=== PATIENT | female | born 1995 | race Caucasian/White ===

== ENCOUNTER 2018-02-13 10:39 | Emergency (ER) | payer MEDICAID, OTHER ==
[2018-02-13 11:02] VITALS: BP 135/84
--- NOTE | 2018-02-13 11:11 | UC ---
Skin Complaint HPI - HPI Summary HPI Summary: 22-year-old female presents with abdominal discomfort and pain. She has had section 9 days ago and states over the last couple of days had increased pain. There hasn been purulent drainage and odorous smell coming from the incision site she has attempted to keep it clean but is having worsening pain and noticing tenderness and redness spreading along the lower abdomen. She denies any fevers or chills. She denies any nausea or vomiting. She does denies any abnormal vaginal bleeding or clotting. She denies shortness of breath chest pains or palpitations. - History of Current Complaint Chief Complaint: UCGeneralIllness Time Seen by Provider: 02/13/18 11:04 Stated Complaint: SKIN COMPLAINT Hx Obtained From: Patient, Family/Environmental Protection Geologist Hx Last Menstrual Period: post delivery Onset/Duration: Gradual Onset Pain Intensity: 6 - Allergy/Home Medications Allergies/Adverse Reactions: Allergies Allergy/AdvReac Type Severity Reaction Status Date / Time No Known Allergies Allergy Verified 02/13/18 11:02 Home Medications: Home Medications NK [No Home Medications Reported] 02/13/18 [History Confirmed 02/13/18] Review of Systems Constitutional: Fatigue Skin: Other - Purulent drainage from the incision site Gastrointestinal: Abdominal Pain Is Patient Immunocompromised?: No All Other Systems Reviewed And Are Negative: Yes PMH/Surg Hx/FS Hx/Imm Hx Previously Healthy: Yes - Surgical History Surgical History: Yes Surgery Procedure, Year, and Place: SKIN SX FOR LESION LEFT HIP, - Family History Known Family History: Positive: Unknown - Social History Alcohol Use: None Substance Use Type: None Smoking Status (MU): Current Some Day Smoker Type: Cigarettes Amount Used/How Often: 1/2 PPD Length of Time of Smoking/Using Tobacco: 5 YRS Have You Smoked in the Last Year: Yes Physical Exam Triage Information Reviewed: Yes Appearance: Well-Appearing, Well-Nourished, Pain Distress - [id number], Obese Vital Signs: Initial Vital Signs Temp 97.7 F 02/13/18 10:58 Pulse 89 02/13/18 10:58 Resp 18 02/13/18 10:58 BP 135/84 02/13/18 10:58 Pulse Ox 100 02/13/18 10:58 Vital Signs Reviewed: Yes Eye Exam: Normal ENT Exam: Normal Dental Exam: Normal Neck exam: Normal Neck: Positive: 1 Respiratory Exam: Normal Cardiovascular Exam: Normal Abdominal Exam: Normal Musculoskeletal Exam: Normal Neurological Exam: Normal Psychological Exam: Normal Psychological: Positive: Normal Response To Family Skin Exam: Normal Skin: Positive: Other - Incision site intact with shashank intact. No dehiscence. Odorous smell with minimal purulent discharge. Significant tenderness to the pannus with diffuse erythema and induration and tenderness to palpation. Right and left upper quadrant without discomfort but right and lower quadrant with pain to palpation and referred discomfort from the incision site. Course/Dx - Course Course Of Treatment: With her recent section and significant pain with induration around the site we will have further evaluation in the emergency department at this time. Spoke with at [facility] emergency room and he is willing to accept patient. She declined ambulance and will drive directly there via a car as her mother will drive her. Patient and agreeable to plan and appreciative of plan at this time. - Differential Diagnoses - Skin Complaint Differential Diagnoses: Cellulitis - Diagnoses Provider Diagnoses: Cellulitis abdomen. Incisional infection abdomen Discharge - Sign-Out/Discharge Documenting (check all that apply): Patient Departure All imaging exams completed and their final reports reviewed: No Studies - Discharge Plan Condition: Good Disposition: HOME-RECOMMEND TO ED Patient Education Materials: Cellulitis (DC) Referrals: Raegan Jenkins MD [Primary Care Provider] - 1 Day Additional Instructions: As we discussed please go directly to the emergency room for further evaluation. - Billing Disposition and Condition Condition: GOOD Disposition: Home-Recommend to ED
== END 2018-02-13 11:19 | disposition home health service (06) ==
LOC: UCCORT 10:39
DX: O86.01 Infection of obstetric surgical wound, superficial incisional site (principal)
CPT/HCPCS: 99212; G0463